=== PATIENT | female | born 1950 | race Caucasian/White ===

== ENCOUNTER 2022-02-07 09:11 | Outpatient (CLI) | payer MEDICARE, OTHER | END 2022-02-07 09:12 | disposition home or self-care (01) | LOC: BURRAD 09:11 | PROVIDERS: ATTEND Registered Nurse Community Health | DX: I10 Essential (primary) hypertension (principal); M19.011 Primary osteoarthritis, right shoulder; M19.012 Primary osteoarthritis, left shoulder ==

== ENCOUNTER 2025-01-06 08:59 | Outpatient (CLI) | payer MEDICARE | END 2025-01-06 09:00 | disposition home or self-care (01) | LOC: BURRAD 08:59 | PROVIDERS: ATTEND Nurse Practitioner Family | DX: R06.02 Shortness of breath (principal) | CPT/HCPCS: 71046 ==